=== PATIENT | female | born 2005 | race Two or more races ===

== ENCOUNTER 2023-09-08 13:51 | Emergency (ER) | payer OTHER ==
[~2023-09-08] VITALS: Ht 154.9 cm; Wt 55.9 kg
[2023-09-08 13:52] VITALS: BP 134/75; TEMP 98.3; O2SAT 100
== END 2023-09-08 15:20 | disposition left against medical advice (07) ==
LOC: M ED 13:51
DX: Z53.21 Procedure and treatment not carried out due to patient leaving prior to being seen by health care provider (principal)

== ENCOUNTER 2024-02-19 16:48 | Emergency (ER) | payer OTHER ==
[~2024-02-19] VITALS: Ht 152.4 cm; Wt 53.8 kg
[2024-02-19] MEDS ORDERED: HYDR-643 PO (16:55)
[2024-02-19] MEDS ORDERED: ONDA8TAB8 SL (16:55)
[2024-02-19 18:00] LABS: BASO % 0.4 % (0.0-1.0); EOS # 0.8 10^3/uL (0.0-0.5); EOS % 9.7 % (0.0-3.0); HEMATOCRIT 41.4 % (36.0-47.0); HEMOGLOBIN 13.4 g/dl (12.0-15.5); LYMPH # 1.7 10^3/uL (1.5-5.0); LYMPH % 21.2 % (24.0-44.0); MEAN CORPUSCULAR HEMOGLOBIN 27.4 pg (27.0-33.0); MEAN CORPUSCULAR HGB CONC 32.4 g/dl (32.0-36.5); MEAN CORPUSCULAR VOLUME 84.7 fl (80.0-96.0); MONO # 0.8 10^3/uL (0.0-0.8); MONO % 9.3 % (2.0-8.0); NEUTROPHILS # 4.8 10^3/uL (1.5-8.5); NEUTROPHILS % 59.2 % (36.0-66.0); PLATELET COUNT, AUTOMATED 292 10^3/uL (150-450); RED BLOOD COUNT 4.89 10^6/uL (4.00-5.40)
[2024-02-19 18:23] LABS: LIPASE 114 U/L (12-53)
[2024-02-19 18:25] LABS: ALBUMIN 3.2 G/DL (3.2-5.2); ALKALINE PHOSPHATASE 109 U/L (46-116); ALT/SGPT 16 U/L (7.0-40); AST/SGOT 12 U/L (<34); BILIRUBIN,DIRECT < 0.1 MG/DL (<0.4); BILIRUBIN,TOTAL 0.2 MG/DL (0.3-1.2); BLOOD UREA NITROGEN 12 MG/DL (9-23); CALCIUM LEVEL 9.3 MG/DL (8.5-10.1); CARBON DIOXIDE LEVEL 24 MMOL/L (20-31); CHLORIDE LEVEL 106 MMOL/L (98-107); CREATININE FOR GFR 0.66 MG/DL (0.55-1.30); GLUCOSE, FASTING 77 MG/DL (60-100); POTASSIUM SERUM 4.2 MMOL/L (3.5-5.1); SODIUM LEVEL 139 MMOL/L (136-145)
[2024-02-19 18:28] LABS: HCG, SERUM QUALITATIVE NEGATIVE (NEGATIVE)
[2024-02-19] MEDS: GASTROGRAFIN SOLUTION 30ML PO SCH (20:11)
[2024-02-19] MEDS: methylPREDNISolone 125MG 2ML VIAL IV ONE (20:25)
[2024-02-19] MEDS: NS 1,000 ML IV ONE (20:25)
[2024-02-19] MEDS: ONDANSETRON 4MG 2ML VIAL IV ONE (20:25)
[2024-02-19] MEDS ORDERED: D5W/0.45% SODIUM CHLORIDE 1,000 ML IV SCH (20:45)
[2024-02-19] MEDS ORDERED: MED REC IN PROGRESS XX SCH (21:10)
[2024-02-19] MEDS ORDERED: ISOVUE-370 76% 100ML VIAL As Ordered ONE (21:36)
[2024-02-19] MEDS ORDERED: ACET500P3 PO (21:52)
[2024-02-19] MEDS ORDERED: EXCETAB32 PO (21:52)
[2024-02-19] MEDS ORDERED: CIPR500T39 PO (21:52)
[2024-02-19] MEDS ORDERED: DICY20TA20 PO (21:52)
[2024-02-19] MEDS ORDERED: HOME MED LIST COMPLETE! XX SCH (21:55)
[2024-02-20] MEDS ORDERED: PRED20TA PO (00:01)
[2024-02-20 00:38] VITALS: BP 112/86; TEMP 97.6; O2SAT 100
== END 2024-02-20 00:40 | disposition home or self-care (01) ==
LOC: M ED 16:48
DX: K50.918 Crohn's disease, unspecified, with other complication (principal); E16.2 Hypoglycemia, unspecified; Z79.1 Long term (current) use of non-steroidal anti-inflammatories (NSAID); Z79.52 Long term (current) use of systemic steroids; Z79.899 Other long term (current) drug therapy
CPT/HCPCS: 74177; 80048; 80076; 83690; 84703; 85025; 86850; 86900; 86901; 87507; 96361; 96374; 99284; J2405; J2919; Q9963; Q9967

== ENCOUNTER → 2024-06-15 | Outpatient (CLI) | payer OTHER ==
[~2024-06-15] MED LIST: ACET500P3 PO; CIPR500T39 PO; DICY20TA20 PO; EXCETAB32 PO; HYDR-643 PO; ONDA-284 SL; PRED20TA PO
[2024-06-15 12:18] LABS: HEMATOCRIT 34.8 % (36.0-47.0); HEMOGLOBIN 10.7 g/dl (12.0-15.5); MEAN CORPUSCULAR HGB CONC 30.7 g/dl (32.0-36.5); MEAN CORPUSCULAR VOLUME 74.7 fl (80.0-96.0); PLATELET COUNT, AUTOMATED 279 10^3/uL (150-450); RED BLOOD COUNT 4.66 10^6/uL (4.00-5.40); WHITE BLOOD COUNT 7.9 10^3/uL (4.0-10.0)
[2024-06-15 12:36] LABS: C REACTIVE PROTEIN QUANTITATIV < 0.40 MG/DL (<1.0)
[2024-06-15 12:37] LABS: ALBUMIN 3.5 G/DL (3.2-5.2); ALKALINE PHOSPHATASE 100 U/L (46-116); ALT/SGPT < 9 U/L (7.0-40); AST/SGOT 10 U/L (<34); BILIRUBIN,DIRECT 0.1 MG/DL (<0.4); BILIRUBIN,TOTAL 0.3 MG/DL (0.3-1.2); IRON (FE) 16 UG/DL (50-170); PERCENT SATURATION 4.1 % (13.2-45.0); TOTAL IRON BINDING CAPACITY 389 UG/DL (250-425); TOTAL PROTEIN 7.3 G/DL (5.7-8.2)
[2024-06-15 12:41] LABS: HEPATITIS B SURFACE ANTIBODY POSITIVE (POSITIVE); TOTAL 25(OH) VITAMIN D 27.1 NG/ML (20.0-100.0); VITAMIN B12 LEVEL 389 PG/ML (211-911)
[2024-06-15 12:42] LABS: FERRITIN 2.8 NG/ML (7.3-270.7)
[2024-06-15 12:57] LABS: ERYTHROCYTE SEDIMENTATION RATE 44 mm/hr (0-20)
[2024-06-16 14:22] LABS: HERPES ZOSTER, VARICELLA IgG < 135.00 index
== END ==
LOC: M LAB 06-14 16:41
PROVIDERS: ATTEND Internal Medicine Gastroenterology
DX: K50.011 Crohn's disease of small intestine with rectal bleeding (principal)

== ENCOUNTER 2025-02-06 13:55 | Outpatient (CLI) | payer OTHER ==
[~2025-02-06] VITALS: Ht 152.4 cm; Wt 55.0 kg
[2025-02-06 14:04] VITALS: BP 130/79; O2SAT 99
[2025-02-06] MEDS: RISANKIZUMAB-RZAA 600 MG in D5W 250 ML IV ONE (14:34)
[2025-02-06 16:20] VITALS: BP 97/58; O2SAT 100
== END 2025-02-06 16:20 ==
LOC: M INFU 13:55
PROVIDERS: ATTEND Internal Medicine Gastroenterology
DX: K50.90 Crohn's disease, unspecified, without complications (principal)
CPT/HCPCS: 96365; J2327

== ENCOUNTER → 2025-03-09 | Outpatient (CLI) | payer OTHER ==
[~2025-03-09] VITALS: Ht 152.4 cm; Wt 52.7 kg
[2025-03-09 13:40] VITALS: BP 119/72; O2SAT 99
[2025-03-09] MEDS: RISANKIZUMAB-RZAA 600 MG in D5W 250 ML IV ONE (14:15)
[2025-03-09 15:25] VITALS: BP 118/68; O2SAT 99
== END ==
LOC: M INFU 13:29
PROVIDERS: ATTEND Internal Medicine Gastroenterology
DX: K50.90 Crohn's disease, unspecified, without complications (principal)
CPT/HCPCS: 36415; 82728; 83550; 85027; 96365; J2327

== ENCOUNTER → 2025-03-09 | Outpatient (CLI) | payer OTHER ==
[2025-03-09 16:44] LABS: HEMATOCRIT 42.7 % (36.0-47.0); HEMOGLOBIN 14.1 g/dl (12.0-15.5); MEAN CORPUSCULAR HEMOGLOBIN 28.3 pg (27.0-33.0); MEAN CORPUSCULAR VOLUME 85.6 fl (80.0-96.0); PLATELET COUNT, AUTOMATED 212 10^3/uL (150-450); RED BLOOD COUNT 4.99 10^6/uL (4.00-5.40)
[2025-03-09 17:09] LABS: PERCENT SATURATION 40.7 % (13.2-45.0)
[2025-03-09 17:12] LABS: FERRITIN 30.9 NG/ML (7.3-270.7)
== END ==
LOC: M LAB 15:30
DX: R74.8 Abnormal levels of other serum enzymes (principal); K50.011 Crohn's disease of small intestine with rectal bleeding; D64.9 Anemia, unspecified; K62.5 Hemorrhage of anus and rectum